=== PATIENT | female | born 1985 | race Caucasian/White ===

== ENCOUNTER 2017-02-11 18:22 | Emergency (ER) | payer BC ==
--- OUTSIDE RECORDS SUMMARY | 2017-02-11 19:41 | XMS REPORT | Continuity of Care Document ---
:1985 Author Organization [facility] [place] [address] Care Team Providers Name Role Phone Unavailable Primary Care Provider Unavailable Source Comments This disclosure is being made pursuant to the [facility] program and maynot contain all information available regarding this patient.[facility] Active Allergies and Adverse Reactions Not on File Current Medications Be aware that medications may not be up to date as of this document. Alwaysverify current medications with the patient. Not on file Active Problems Not on file Social History Tobacco Use Types Packs/Day Years Used Date Never Assessed Plan of Care Health Maintenance Due Date Last Done Comments Retired-Pertussis Vaccine Adult 2006 Retired-Tetanus Vaccine Adult 2006 Pap Smear 2008 Retired-INFLUENZA VACCINE 07/30/2015 Results from Last 3 Months Not on file
--- OUTSIDE RECORDS SUMMARY | 2017-02-11 19:41 | XMS REPORT | Continuity of Care Document ---
:1985 Author Organization [facility] ([facility]) Address [address] [place] [address] Phone [phone] Care Team Providers Name Role Phone Bailey Amor Primary Care Provider [phone] Source Comments This disclosure is being made pursuant to the Care Everywhere program, applicable federal and state laws, and may not contain all informaitonavailable regarding this patient.[facility] ([facility]) Active Allergies and Adverse Reactions Allergen Noted Date Severity Reactions Comments Fexofenadine OTHER rapid heart rate Wheat Containing Prod Unknown state had when very young. state respiratory allergies Current Medications Prescription Sig. Disp. Refills Start Date End Date Status omeprazole (PRILOSEC Take 1 Tab by 28 Tab 0 09/30/2012 Active OTC) 20 mg tablet mouth 2 times daily. Use OTC Indications: H. pylori infection polyethylene Take 4,000 mL by 1 Container 0 11/07/2012 Active glycol-electrolyte mouth once. (GOLYTELY) Indications: BOWEL suspension EVACUATION Active Problems Problem Noted Date Heartburn 09/28/2012 Prothrombin heterozygote- she was on heparin during her 01/02/2011 Resolved Problems Problem Noted Date Resolved Date Screening for malignant neoplasm of the cervix 12/27/2006 01/02/2011 Other and unspecified coagulation defects 12/27/2006 01/02/2011 Social History Tobacco Use Types Packs/Day Years Used Date Former Smoker Smokeless Tobacco: Never Used Comments:quit 2007 Alcohol Use Drinks/Week oz/Week Comments No Last Filed Vital Signs Vital Sign Reading Time Taken Blood Pressure 135/67 12/12/2012 5:22 PM [employer] Pulse 69 12/12/2012 3:22 PM [employer] Temperature 36.9 C (98.4 F) 12/12/2012 3:22 PM [employer] Respiratory Rate 20 12/12/2012 5:22 PM [employer] Height 1.8 m (5' 10.87") 09/28/2012 8:23 AM CDT Weight 55.021 kg (121 lb 4.8 oz) 09/28/2012 8:23 AM CDT Body Mass Index 16.98 09/28/2012 8:23 AM CDT Oxygen Saturation 100% 12/12/2012 5:22 PM [employer] Plan of Care Health Maintenance Due Date Last Done Comments Hepatitis B Vaccine (1 of 3 - Primary Series) 1985 Tdap Vaccine 1998 Lipid Disorder Screening 2005 MMR Vaccine 2005 Td Vaccine 2005 Cervical Cancer Screening 12/27/2009 12/27/2006 Influenza Vaccine: Seasonal (#1) 06/29/2016 Results from Last 3 Months Not on file
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
[2017-02-11 20:31] VITALS: BP 129/79
== END 2017-02-11 20:15 | disposition home or self-care (01) ==
LOC: ER 18:22
PROC: 2W3CX1Z Immobilization of Right Lower Arm using Splint (ICD-10-PCS; principal; 2017-02-11)
DX: Z87.891 Personal history of nicotine dependence (principal); S52.501A Unspecified fracture of the lower end of right radius, initial encounter for closed fracture; W18.09XA Striking against other object with subsequent fall, initial encounter; Y92.009 Unspecified place in unspecified non-institutional (private) residence as the place of occurrence of the external cause

== ENCOUNTER 2019-06-07 02:02 | Inpatient (IN) ==
[2019-06-07 02:58] LABS: Cocaine Ur Negative (NEGATIVE); Urine Barbiturate Negative (NEGATIVE); Urine Benzodiazepines Negative (NEGATIVE); Urine Opiates Negative (NEGATIVE); Urine PCP Negative (NEGATIVE); Urine THC Negative (NEGATIVE)
[2019-06-07] MEDS ORDERED: OXYTOCIN/DEXTROSE 5%-WATER 30 UNITS/500 ML BAG IV ONE ×2 (04:15→12:11)
[2019-06-07] MEDS ORDERED: DEXTROSE 5%-LACTATED RINGERS 1,000 ML IV PRN (04:15)
[2019-06-07] MEDS ORDERED: RINGER'S SOLUTION,LACTATED 1,000 ML IV ONE (04:15)
[2019-06-07] MEDS ORDERED: ONDANSETRON 4 MG TAB.RAPDIS PO PRN (04:15)
[2019-06-07] MEDS ORDERED: PENICILLIN G POTASSIUM 5 MILLIONUNT in DEXTROSE 5 % IN WATER 100 ML IV ONE ×2 (04:30)
[2019-06-07] MEDS ORDERED: NALOXONE HCL 1 MG/1 ML SYRG IV PRN (04:32)
[2019-06-07] MEDS ORDERED: ONDANSETRON HCL/PF 2 MG/ML VIAL IV PRN (04:32)
[2019-06-07] MEDS ORDERED: BUPIVACAINE HCL/0.9 % NACL/PF 250 ML EP PRN (04:32)
[2019-06-07] MEDS ORDERED: fentaNYL CITRATE/PF 50 MCG/ML AMPUL IT SCH (04:45)
[2019-06-07 05:38] LABS: Hematocrit 32.9 % (37.0-47.0); Hemoglobin 10.8 gm/dL (12.5-16.0); Mean Cell Volume 92.9 fl (78-100); Mean Corpuscular Hemoglobin 30.5 pg (27-31); Mean Corpuscular Hgb Conc 32.8 g/dl (32-36); Mean Platelet Volume 9.1 fl (8-12.5); Neutrophil # 8.2 K/mm3 (1.3-6.0); Neutrophil % 71.7 % (42-75.0); Platelet Count 250 K/mm3 (150-450); Red Blood Count 3.54 M/mm3 (4.2-5.4); Red Cell Distribution Width 12.5 % (11.5-14.0); White Blood Count 11.4 K/mm3 (4.0-10.5)
[2019-06-07] MEDS ORDERED: PENICILLIN G POTASSIUM 2.5 MILLIONUNT in DEXTROSE 5 % IN WATER 100 ML IV SCH ×2 (08:30)
--- NOTE | 2019-06-07 09:13 | ANES ---
Post Anesthesia Discharge - Transfer of Care Transfer of Care handoff given to nurse: Yes - Anesthesia Post Op Note Anesthesia Post Op Note: Care transferred to OB RN
--- NOTE | 2019-06-07 09:13 | ANES ---
Anesthesia Pre Procedure Eval Vitals/Labs: Last Vital Signs Temp 36.5 C 06/07/19 05:44 Pulse 75 06/07/19 05:44 Resp 18 06/07/19 05:44 BP 141/89 H 06/07/19 05:44 Pulse Ox 98 06/07/19 05:44 HOME MEDICATIONS [id number]/Iron Fumarate/FA/Dss [ 19 Tablet] 1 ea PO DAILY 10/13/18 [Last Taken 06/06/19] breast pump See Dose Instructions .ROUTE .MEDSUPPLY #1 ea 02/09/19 [Last Taken Unknown] ferrous sulfate 325 mg (65 mg iron) tablet 325 mg PO DAILY #30 tab 03/08/19 [Last Taken 06/06/19] heparin (porcine) 10,000 unit/mL injection solution See Rx Instructions SUBCUT Q12H #21 ml 05/15/19 [Last Taken 06/07/19 01:00] insulin syringes (disposable) 1 mL See Dose Instructions .ROUTE .MEDSUPPLY #500 ea 05/15/19 [Last Taken 06/07/19 01:00] Allergies/Adverse Reactions: Allergies Allergy/AdvReac Type Severity Reaction Status Date / Time fexofenadine HCl Allergy Severe tachycardia Verified 06/07/19 02:25 [From Jerri] lamotrigine [From Lamictal] Allergy Rash Verified 06/07/19 02:25 bupropion [From Wellbutrin] AdvReac Fatigue Verified 06/07/19 02:25 fluticasone AdvReac Headache Verified 06/07/19 02:25 lorazepam [From Ativan] AdvReac Headache Verified 06/07/19 02:25 - Planned Procedure Planned Procedure: labor Medication List Reviewed:: Yes Allergies Verified: Yes Medical History (Updated 04/20/19 @ 08:53 by Izaiah Fraga DO) Irregular menses (Acute) 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 Evalutated by [facility]. Influenza vaccination declined by patient (Acute) Onset Date: 10/25/18 Anemia Onset Date: 03/06/19 w/ Right wrist injury [place] teeth removed Onset Date: ~2005 Body piercing Pre-eclampsia Onset Date: ~2010 Tattoo Bacterial vaginosis Onset Date: ~2013 Bipolar disorder Onset Date: ~2013 Eustachian tube dysfunction Onset Date: ~2014 Generalized anxiety disorder Onset Date: ~2012 Helicobacter pylori (H. pylori) infection Onset Date: ~2012 Human papilloma virus infection Onset Date: Unknown condyloma-07/2008 Irregular menses Onset Date: ~2012 Leg pain Onset Date: ~2013 MRSA (methicillin resistant staph aureus) culture positive Onset Date: ~2014 vaginal/perineal sores Polycystic ovarian syndrome Onset Date: Unknown Thyroid nodule Onset Date: ~2004 benign Trichomonal infection Onset Date: ~2013 Vitamin D deficiency Onset Date: Unknown abnormal pap smear Onset Date: ~2006 Surgical History (Updated 04/20/19 @ 08:46 by Izaiah Fraga DO) D&C 2006 History of open reduction and internal fixation (ORIF) procedure Onset Date: ~2012 rt scaphoid fx myringotomy tubes Onset Date: Unknown several times as a child wrist surgery open reduction and internal fixation- Rt scaphoid fx Family History (Updated 10/25/18 @ 10:23 by Alanis Smith RN) Mother Hyperthyroidism Hypothyroidism Insulin resistance GERD (gastroesophageal reflux disease) Factor V Leiden Diabetes Father Diabetes LE DVTs Grandmother Pulmonary embolism Factor V Leiden Hypertension Grandfather Alzheimers disease CAD (coronary artery disease) Grandfather CVA (cerebral vascular accident) Cocaine addiction Aunt Diabetes Factor V Leiden - Family Anesthesia History Family History:: no untoward family reactions to anesthesia - Airway/Neck/Teeth Within Normal Limits:: Yes Teeth Condition: intact Neck Exam: full range of motion Mallampatti Score: 2 Thyromental (T-M) distance: > 6 cm Mandibulo Hyoid distance: > 3 cm - Respiratory Respiratory Physical: lungs clear Smoking Status: Never smoker Sleep Apnea currently treated: No Sleep Apnea by current assessment: No - Cardiovascular Tolerate Activity: Good Heart Sounds: S1 & S2, Regular - Anesthesia Assessment and Plan ASA Class: PS, II, E Anesthesia Type Plan: Epidural
--- NOTE | 2019-06-07 09:14 | ANES ---
Post Anesthesia Assessment - Vital Signs Vitals: Last Vital Signs Temp 36.5 C 06/07/19 05:44 Pulse 75 06/07/19 05:44 Resp 18 06/07/19 05:44 BP 141/89 H 06/07/19 05:44 Pulse Ox 98 06/07/19 05:44 Airway Patency: Normal - Mental Status Level Of Consciousness: Awake - Pain Level Pain Score: 0 - N/V Assessment Nausea/Vomiting Presence: None Dehydration:: No
--- NOTE | 2019-06-07 09:15 | ANES ---
Anesthesia Procedure Note Procedure Note: ANESTHESIA PROCEDURE NOTE Date of Procedure: 06/07/2019 Time of procedure: 0700. Performed by: Jorje Cruz CRNA Tape Making Machine Operator: None. Preprocedure diagnosis: Active labor. Post procedure diagnosis: Same. Procedure: Insertion of labor epidural. Indications: The patient is a 33-year-old multigravid female in active labor requesting labor epidural for pain management. Findings: See below. Details of the procedure: The patient was placed in a sitting position. Back was prepped with DuraPrep. Patient was then draped in a sterile fashion. Lidocaine 1% was infiltrated to the skin and subcutaneous tissues at the level of the L3 4 interspace. The epidural space was identified using a 18-gauge Tuohy needle with [id number] technique. 20 mcg fentanyl was given intrathecally using a 27 ga. spinal needle. Epidural catheter was inserted without difficulty. Negative test dose was elicited using 5 mL of 1.5% preservative-free lidocaine plus epinephrine 1 200,000. The epidural catheter was then taped and secured in place. EBL: Minimal. Fluids: N/A. Specimen: N/A. Post procedure condition: The patient tolerated the procedure well. No complications were noted. Thank you for this consultation. [place] CRNA
--- NOTE | 2019-06-07 10:14 | HP ---
Chief Complaint - Chief Complaint Date of Service: 06/07/19 Time of Service: 07:30 Chief Complaint: contractions History of Present Illness: 33 yo at 38 2/7 weeks presents to L&D complaining of contractions of increasing frequency and intensity. This complicated by anxiety, bipolar d/o, prothrombin T03329J mutation, and h/o preeclampsia. RH positive Rubella immune GBS positive Medical History (Updated 04/20/19 @ 08:53 by Izaiah Fraga DO) Irregular menses (Acute) Prothrombin P04487H mutation (Chronic) heterozygous- tx'd w/ heparin 10k BID and then Lovenox during last . Evalutated by [facility]. Influenza vaccination declined by patient (Acute) Onset Date: 10/25/18 Anemia Onset Date: 03/06/19 w/ Right wrist injury [place] teeth removed Onset Date: ~2005 Body piercing Pre-eclampsia Onset Date: ~2010 Tattoo Bacterial vaginosis Onset Date: ~2013 Bipolar disorder Onset Date: ~2013 Eustachian tube dysfunction Onset Date: ~2014 Generalized anxiety disorder Onset Date: ~2012 Helicobacter pylori (H. pylori) infection Onset Date: ~2012 Human papilloma virus infection Onset Date: Unknown condyloma-07/2008 Irregular menses Onset Date: ~2012 Leg pain Onset Date: ~2013 MRSA (methicillin resistant staph aureus) culture positive Onset Date: ~2014 vaginal/perineal sores Polycystic ovarian syndrome Onset Date: Unknown Thyroid nodule Onset Date: ~2004 benign Trichomonal infection Onset Date: ~2013 Vitamin D deficiency Onset Date: Unknown abnormal pap smear Onset Date: ~2006 Surgical History: Surgical History (Updated 04/20/19 @ 08:46 by Izaiah Fraga DO) D&C 2006 History of open reduction and internal fixation (ORIF) procedure Onset Date: ~2012 rt scaphoid fx myringotomy tubes Onset Date: Unknown several times as a child wrist surgery open reduction and internal fixation- Rt scaphoid fx Family History: Family History (Updated 10/25/18 @ 10:23 by Alanis Smith RN) Mother Hyperthyroidism Hypothyroidism Insulin resistance GERD (gastroesophageal reflux disease) Factor V Leiden Diabetes Father Diabetes LE DVTs Grandmother Pulmonary embolism Factor V Leiden Hypertension Grandfather Alzheimers disease CAD (coronary artery disease) Grandfather CVA (cerebral vascular accident) Cocaine addiction Aunt Diabetes Factor V Leiden Social History: Preferred Language [place]ine[place] Smoking Status Never smoker Psych History No pertinent hx (Last Updated 06/06/19 @ 09:49 by Izaiah Fraga DO) No Social History Section defined Review Of Systems (GEN) - Review of Systems Generalized/Overall Review: Present: No Symptoms Reported EENTM: Present: No Symptoms Reported Respiratory: Present: No Symptoms Reported Cardiac: Present: No Symptoms Reported Abdominal: Present: Other - contraction Genitourinary: Present: Other - cervix 3-4/70/-1 Musculoskeletal: Present: No Symptoms Reported Neurological: Present: No Symptoms Reported Skin: Present: No Symptoms Reported Endocrine: Present: No Symptoms Reported Immunizations: IMMUNIZATION HX Immunizations Up to Date Yes History of Influenza Vaccine No Hx Pneumococcal Vaccination No Allergies/Adverse Reactions: Allergies Allergy/AdvReac Type Severity Reaction Status Date / Time fexofenadine HCl Allergy Severe tachycardia Verified 06/07/19 02:25 [From Jerri] lamotrigine [From Lamictal] Allergy Rash Verified 06/07/19 02:25 bupropion [From Wellbutrin] AdvReac Fatigue Verified 06/07/19 02:25 fluticasone AdvReac Headache Verified 06/07/19 02:25 lorazepam [From Ativan] AdvReac Headache Verified 06/07/19 02:25 Home Medications: HOME MEDICATIONS Keq770/Iron Fumarate/FA/Dss [ 19 Tablet] 1 ea PO DAILY 10/13/18 [Last Taken 06/06/19] breast pump See Dose Instructions .ROUTE .MEDSUPPLY #1 ea 02/09/19 [Last Taken Unknown] ferrous sulfate 325 mg (65 mg iron) tablet 325 mg PO DAILY #30 tab 03/08/19 [Last Taken 06/06/19] heparin (porcine) 10,000 unit/mL injection solution See Rx Instructions SUBCUT Q12H #21 ml 05/15/19 [Last Taken 06/07/19 01:00] insulin syringes (disposable) 1 mL See Dose Instructions .ROUTE .MEDSUPPLY #500 ea 05/15/19 [Last Taken 06/07/19 01:00] Exam - Exam Vital Signs: Vital Signs - Last Taken Temp 36.5 C 06/07/19 05:44 Pulse 75 06/07/19 05:44 Resp 18 06/07/19 05:44 BP 141/89 H 06/07/19 05:44 Pulse Ox 98 06/07/19 05:44 Constitutional: Present: Alert, Oriented x3, Cooperative, Mild distress - contractions ENT Exam: Present: hearing grossly normal Breasts: Present: Exam deferred Respiratory: Present: lungs clear, no respiratory distress Cardiovascular/Chest: Present: regular rate, rhythm, no edema Abdomen: Present: soft, no rebound tenderness, other - Gravid /Rectal: Present: Other - cervix 3-4/70/-1 Extremity: Present: no pedal edema, no calf tenderness Skin Exam: Present: normal color, warm/dry, no cyanosis Neurologic: Present: alert, normal mood/affect, oriented x 3 Appearance: Present: appropriate appearance, appropriate insight Eye contact: Present: cooperative, good eye contact Thoughts: Present: normal thought pattern Diagnostic Studies: Abnormal Lab Results 06/07/19 Range/Units 05:25 WBC 11.4 H D (4.0-10.5) K/mm3 RBC 3.54 L (4.2-5.4) M/mm3 Hgb 10.8 L (12.5-16.0) gm/dL Hct 32.9 L (37.0-47.0) % Immature Gran % (Auto) 2.10 H (0.001-0.429) % Immature Gran # (Auto) 0.24 H (0.000-0.0310) K/mm3 Lymphocytes % 16.1 L (20-51) % Neutrophils # 8.2 H (1.3-6.0) K/mm3 Laboratory Results WBC 11.4 K/mm3 (4.0-10.5) H D 06/07/19 05:25 RBC 3.54 M/mm3 (4.2-5.4) L 06/07/19 05:25 Hgb 10.8 gm/dL (12.5-16.0) L 06/07/19 05:25 Hct 32.9 % (37.0-47.0) L 06/07/19 05:25 MCV 92.9 fl (78-100) 06/07/19 05:25 MCH 30.5 pg (27-31) 06/07/19 05:25 MCHC 32.8 g/dl (32-36) 06/07/19 05:25 RDW 12.5 % (11.5-14.0) 06/07/19 05:25 Plt Count 250 K/mm3 (150-450) 06/07/19 05:25 MPV 9.1 fl (8-12.5) 06/07/19 05:25 Immature Gran % (Auto) 2.10 % (0.001-0.429) H 06/07/19 05:25 Immature Gran # (Auto) 0.24 K/mm3 (0.000-0.0310) H 06/07/19 05:25 71.7 % (42-75.0) 06/07/19 05:25 16.1 % (20-51) L 06/07/19 05:25 8.5 % (0.0-9) 06/07/19 05:25 1.1 % (0.0-3.0) 06/07/19 05:25 0.5 % (0.0-1.0) 06/07/19 05:25 Nucleated RBC % 0.0 k/mm3 (0-1) 06/07/19 05:25 8.2 K/mm3 (1.3-6.0) H 06/07/19 05:25 1.83 k/mm3 (1.5-3.5) 06/07/19 05:25 1.0 k/mm3 (0.0-1.0) 06/07/19 05:25 0.1 k/mm3 (0.0-0.7) 06/07/19 05:25 Absolute Basophils 0.1 k/mm3 (0.0-0.1) 06/07/19 05:25 PTT (Alexander) 24.8 Seconds (24-32) 06/07/19 05:25 Negative (NEGATIVE) 06/07/19 02:36 Negative (NEGATIVE) 06/07/19 02:36 Ur Phencyclidine Scrn Negative (NEGATIVE) 06/07/19 02:36 Urine Amphetamine Negative (NEGATIVE) 06/07/19 02:36 U Benzodiazepines Scrn Negative (NEGATIVE) 06/07/19 02:36 Negative (NEGATIVE) 06/07/19 02:36 Negative (NEGATIVE) 06/07/19 02:36 Assessment/Plan - Assessment/Plan (1) Labor established Assessment: Admit for labor. CBC and PTT prior to epidural since patient on thrombolytics. Resume Lovenox 40mg 6-8h after epidural removed. Start on PCN per GBS protocol. Problem: Acute (2) Group beta Strep positive Problem: Acute (3) Anxiety Problem: Chronic (4) Bipolar disorder Problem: Chronic Qualifiers: Active/Remission status: in partial remission Most recent bipolar episode type: most recent episode unspecified type Qualified Code(s): F31.70 - Bipolar disorder, currently in remission, most recent episode unspecified (5) Prothrombin [id number] mutation Problem: Chronic
--- NOTE | 2019-06-07 12:05 | OR ---
Operative Report - Dictated Report Narrative: Spontaneous vaginal delivery of a vigorously crying viable female at 1145 on 06/07/2019 with Apgars 9 and 9, weighing 2957 g in DOUGLAS position Cord clamping delayed approximately 1 minute Placenta delivered complete, intact, with three vessel cord Estimated blood loss: less than 50 ml Anesthesia: epidural Lacerations: 2 cm second degree vaginal laceration repaired with 3-0 Vicryl Rapide History for MU History for Definition: * The number of deliveries resulting in a live the patient experienced prior to current hospitalization * The previous delivery of live twins or any live multiple gestation is considered one live event. *If primagravida or nulliparous is documented select zero for the number of previous live births. Live Events: Live Events: 1
[2019-06-07] MEDS ORDERED: SENNOSIDES 8.6 MG TABLET PO PRN (12:11)
[2019-06-07] MEDS ORDERED: HYDROCORTISONE 30 APPL TUBE TP PRN (12:11)
[2019-06-07] MEDS ORDERED: BENZOCAINE/MENTHOL 81 SPRAY CAN TP PRN (12:11)
[2019-06-07] MEDS ORDERED: GLYCERIN/WITCH HAZEL LEAF 40 APPL BOX TP PRN (12:11)
[2019-06-07] MEDS ORDERED: IBUPROFEN 800 MG TABLET PO PRN (12:11)
[2019-06-07] MEDS ORDERED: BISACODYL 10 MG SUPP.RECT RC PRN (12:11)
[2019-06-07] MEDS: IBUPROFEN 800 MG TABLET PO PRN (14:57)
[2019-06-07] MEDS: DOCUSATE SODIUM 100 MG CAPSULE PO SCH (20:06)
[2019-06-07] MEDS: ENOXAPARIN SODIUM 40 MG/0.4 ML SYRG SC SCH (20:06)
[2019-06-08] MEDS: HYDROcodone/ACETAMINOPHEN 1 EACH TABLET PO PRN ×2 (04:52→14:06)
--- NOTE | 2019-06-08 07:42 | PN ---
Subjective - Date and Time Seen Date: 06/08/19 Time: 07:41 Objective - Vitals Vitals: Last Vital Signs Temp 36.3 C 06/08/19 07:01 Pulse 64 06/08/19 07:01 Resp 14 06/08/19 07:01 BP 123/68 06/08/19 07:01 Pulse Ox 98 06/08/19 07:01 Patient denies complaints. Breast-feeding Lochia wnl Abdomen - soft, nontender Uterus - firm, at umbilicus - 1 No calf tenderness Impression: day #1 - s/p spontaneous vaginal delivery. Thrombophilia-on Lovenox daily. Plan: Continue routine care. Continue Lovenox through 6 weeks . Assessment/Plan - Problems/Diagnosis (1) Labor established Problem: Acute (2) Group beta Strep positive Problem: Acute (3) Anxiety Problem: Chronic (4) Bipolar disorder Problem: Chronic Qualifiers: Active/Remission status: in partial remission Most recent bipolar episode type: most recent episode unspecified type Qualified Code(s): F31.70 - Bipolar disorder, currently in remission, most recent episode unspecified (5) Prothrombin [id number] mutation Problem: Chronic
[2019-06-08] MEDS: PRENATAL VITS96/IRON FUM/FOLIC 1 TAB TABLET PO SCH (09:52)
[2019-06-08] MEDS: FERROUS SULFATE 325 MG TABLET PO SCH (09:52)
[2019-06-08] MEDS: DOCUSATE SODIUM 100 MG CAPSULE PO SCH ×2 (09:52→20:38)
[2019-06-08] MEDS: IBUPROFEN 800 MG TABLET PO PRN (12:11)
[2019-06-08] MEDS: ENOXAPARIN SODIUM 40 MG/0.4 ML SYRG SC SCH (20:39)
[2019-06-09] MEDS: IBUPROFEN 800 MG TABLET PO PRN (07:51)
[2019-06-09] MEDS: PRENATAL VITS96/IRON FUM/FOLIC 1 TAB TABLET PO SCH (09:18)
[2019-06-09] MEDS: DOCUSATE SODIUM 100 MG CAPSULE PO SCH (09:18)
[2019-06-09] MEDS: FERROUS SULFATE 325 MG TABLET PO SCH (09:18)
--- NOTE | 2019-06-09 11:19 | PN ---
Subjective - Date and Time Seen Date: 06/09/19 Time: 11:18 Objective - Vitals Vitals: Last Vital Signs Temp 36.6 C 06/09/19 07:50 Pulse 74 06/09/19 07:50 Resp 18 06/09/19 07:50 BP 132/92 H 06/09/19 07:50 Pulse Ox 97 06/09/19 07:50 Patient denies complaints. Breast-feeding well Lochia wnl Abdomen - soft, nontender Uterus - firm, at umbilicus - 1 No calf tenderness Impression: day #2 - s/p spontaneous vaginal delivery. Thrombophilia-on Lovenox daily. Plan: Continue routine care. Routine discharge instructions. Continue Lovenox through 6 weeks . Assessment/Plan - Problems/Diagnosis (1) Labor established Problem: Acute (2) Group beta Strep positive Problem: Acute (3) Anxiety Problem: Chronic (4) Bipolar disorder Problem: Chronic Qualifiers: Active/Remission status: in partial remission Most recent bipolar episode type: most recent episode unspecified type Qualified Code(s): F31.70 - Bipolar disorder, currently in remission, most recent episode unspecified (5) Prothrombin [id number] mutation Problem: Chronic
[2019-06-09 11:26] VITALS: BP 136/87
== END 2019-06-09 13:50 | disposition home or self-care (01) | DRG 807 ==
LOC: OBCLINIC 02:02 → OB 04:16 → MS 06-08 15:06
PROVIDERS: ADMIT Obstetrics & Gynecology; ATTEND Obstetrics & Gynecology
CPT/HCPCS: 36415; 59025; 80307; 85025; 85730; 88307